=== PATIENT | female | born 2000 | race Caucasian/White ===

== ENCOUNTER 2020-12-20 20:42 | Emergency (ER) | payer MEDICAID, OTHER ==
[~2020-12-20] VITALS: Ht 157.5 cm; Wt 44.5 kg
[~2020-12-20 20:42] MED LIST: RISP1TAB48 PO
[2020-12-20 20:49] VITALS: BP 134/78
== END 2020-12-20 22:30 | disposition left against medical advice (07) ==
LOC: EMS 20:42
DX: Z04.1 Encounter for examination and observation following transport accident (principal)